=== PATIENT | male | born 1945 | race African-American/Black ===

== ENCOUNTER 2017-02-14 17:54 | Outpatient (CLI) | payer MEDICARE, OTHER ==
--- NOTE | 2017-02-14 19:29 | RAD ---
PA AND LATERAL CHEST: Date: 02-14-17 History: Smoking history. Comparison: 08-09-16 FINDINGS: Cardiac silhouette and pulmonary vasculature are within normal limits. Again noted is hyperexpansion of the lungs with emphysematous changes seen. There are linear areas of scarring seen in each lung apex with prominent bullous emphysematous changes in the upper lobes, greater on the right. There alexander s been interval development of a pulmonary nodule overlying the left midlung zone measuring 1.4 cm. No other interval change. IMPRESSION: 1. Interval development of pulmonary nodule at left midlung zone. CT thorax is recommended for furth er evaluation. 2. Emphysematous changes and chronic lung changes. Code T POS: [facility]
== END 2017-02-14 17:55 | disposition home or self-care (01) ==
LOC: NAV RAD 17:54
PROVIDERS: ATTEND Nurse Practitioner Family
DX: Z87.891 Personal history of nicotine dependence (principal); R91.1 Solitary pulmonary nodule
CPT/HCPCS: 71020

== ENCOUNTER 2018-06-26 17:01 | Inpatient (IN) | payer MEDICARE, MEDICAID ==
[2018-06-26 17:23] VITALS: BMI 15.5
[2018-06-26] MEDS ORDERED: Acetaminophen 500 MG TAB PO PRN (17:58)
[2018-06-26] MEDS ORDERED: PROVENTIL INHALER 6.7 G (200 INHALATIONS) INH PRN (19:11)
[2018-06-26] MEDS ORDERED: Albuterol Sulfate 2.5 mg/3 ml Neb NEB PRN (20:39)
[2018-06-26] MEDS: Lisinopril 10 MG TAB PO SCH (21:02)
[2018-06-26] MEDS: Cefdinir 300 MG CAP PO SCH (21:02)
[2018-06-26] MEDS: Famotidine 20 MG TAB PO SCH (21:02)
[2018-06-26] MEDS: Ipratropium Oral Inhaler (200 INHALATIONS) INH SCH (22:11)
--- NOTE | 2018-06-27 00:54 | HP ---
CHIEF COMPLAINT: COPD exacerbation and acute urinary retention, requiring Hernandez catheter placement as well as deconditioning for therapy. BRIEF HISTORY: This is a very pleasant 72-year-old male who presented to [facility] on June 19 with shortness of breath. He was diagnosed with COPD exacerbation. He apparently has also had weight loss of 15 pounds in the last 3 months. He did undergo a chest CT scan which showed severe emphysema with mild atherosclerosis. He was seen by Pulmonology and was treated aggressively with breathing treatments and steroids. He has been switched over to oral steroids and oral antibiotics and was felt to be a candidate for inpatient rehabilitation and transferred here. He also had to have a Hernandez catheter placed due to acute urinary retention and was started on both Flomax and Proscar. The patient is currently resting in bed and denies any concerns. He denies any chest pain or shortness of breath. He denies any fever or chills. He denies any PND or orthopnea. No family at bedside. PAST MEDICAL HISTORY: 1. Chronic obstructive pulmonary disease. 2. Hypertension. 3. Coronary artery disease. 4. Dyslipidemia. PAST SURGICAL HISTORY: 1. Coronary artery stent placement in 2014. 2. Hip replacement. MEDICATIONS: He has been transferred here on the following medications; 1. Ventolin inhaler 2 puffs q.4 p.r.n. 2. Symbicort 1 puff b.i.d., he is to gargle after use. I would suspect it should be 2 puffs b.i.d. 3. Plavix 75 mg daily. 4. DuoNeb via nebulizer q.6 p.r.n. 5. Lisinopril 10 mg b.i.d. 6. Carvedilol 6.25 mg b.i.d. 7. Omnicef 300 mg b.i.d. for 5 more days. 8. Pepcid 20 mg b.i.d. 9. Proscar 5 mg daily. 10. Atrovent inhaler 2 puffs 4 to 6 hours p.r.n. 11. Prednisone 20 mg p.o. daily for 5 more days. 12. Flomax 0.4 mg daily. ALLERGIES: NO KNOWN DRUG ALLERGIES. FAMILY HISTORY: Noncontributory to current admission. PSYCHOSOCIAL HISTORY: He drinks at least 5 drinks a day and smokes about a pack of cigarettes a day and has more than a 50 pack-year history of smoking. Denies any recreational drug use. REVIEW OF SYSTEMS: CARDIOVASCULAR SYSTEM: Denies any chest pain, shortness of breath, palpitations, PND, orthopnea, or pedal edema. RESPIRATORY SYSTEM: Chronic cough, occasional expectoration. Denies any hemoptysis or pleuritic-type chest pain. GASTROINTESTINAL SYSTEM: Denies any nausea, vomiting, diarrhea, constipation, hematemesis, melena, or hematochezia. GENITOURINARY SYSTEM: Acute urinary retention requiring Hernandez catheter placement. MUSCULOSKELETAL SYSTEM: Occasional joint pain. CENTRAL NERVOUS SYSTEM: Denies any focal numbness, weakness, or fainting spells. SKIN: Denies any rash. HEENT: Denies any change in vision, hearing, or swallowing. PHYSICAL EXAMINATION: GENERAL: A pleasant 72-year-old male, cachectic, in no apparent distress. He responds appropriate to questions. He just finished his dinner. No family at bedside. VITAL SIGNS: He is afebrile. Heart rate is 90, respirations 20, oxygen saturation 98% on room air, blood pressure 142/97. HEENT: Normocephalic, atraumatic. Pupils equal and reactive to light and accommodation. NECK: No JVD, thyromegaly carotid bruits. CARDIOVASCULAR SYSTEM: S1 and S2 plus rate and rhythm regular. RESPIRATORY SYSTEM: Normal vesicular breath sounds with decreased air entry. Occasional wheezing. ABDOMEN: Soft, scaphoid, nontender. Bowel sounds heard in all quadrants. EXTREMITIES: Without cyanosis or clubbing. Muscle atrophy is present. No edema. CENTRAL NERVOUS SYSTEM: Alert, awake, and oriented x3. Cranial nerves 2 through 12 intact. Motor system examination shows generalized weakness. LABORATORY DATA: Laboratory values from today are pending. From yesterday, his white count was 6.2, H and H are 11 and 34 with macrocytosis probably from his alcohol use. Chemistry shows a sodium of 139, potassium 3.7, BUN and creatinine are 23 and 0.82. IMPRESSION: 1. Exacerbation of chronic obstructive pulmonary disease, much improved. 2. Hypertension. 3. Dyslipidemia. 4. Coronary artery disease. 5. Significant weight loss in the last 3 months. 6. Deconditioning. 7. Acute urinary retention, likely secondary to benign prostatic hyperplasia. PLAN: 1. Continue heart healthy diet. 2. Oxygen if needed and monitor oxygen saturation. 3. Monitor respiratory status and breathing treatments as ordered. 4. Symbicort regularly and gargle after use. 5. Deep venous thrombosis prophylaxis with PlexiPulses. 6. Stress ulcer prophylaxis. He is already on Pepcid. 7. Monitor cardiac status. 8. PT, OT eval and treat. 9. Recheck laboratory values in the morning. 10. Discussed with the patient and nursing in detail and all questions answered. 11. Estimated length of stay is 7 to 10 days. Job ID: [id number]
[2018-06-27] MEDS: Mometasone/Formoterol 60 PUFF AER INH SCH ×2 (05:07→18:11)
[2018-06-27 05:39] LABS: Band 3 % (5-11); Eosinophils 1 % (0-10); Hemoglobin 10.5 g/dL (14.0-18.0); Lymphocytes 17 % (21-51); MDiff Complete? YES; Mean Corpuscular HGB CONC 32.9 g/dL (32.0-36.0); Mean Corpuscular Hemoglobin 34.2 pg (27.0-31.0); Mean Platelet Volume 9.9 fL (7.4-10.4); Monocytes 14 % (0-10); Neutrophil 65 % (42-75); Platelet Count 173 thou/uL (130-400); Platelet Morphology Comment Appears Adequate; Red Blood Cell (RBC) Count 3.07 mill/uL (4.70-6.10); Target Cells MODERATE= 6-15 cells (100X) (0-1/hpf)
[2018-06-27 05:47] LABS: Anion Gap 11 mmol/L (10-20); BUN (Urea Nitrogen) 29 mg/dL (8.4-25.7); Calc. Creatinine Clearance 63 mL/min (70-130); Calcium 8.8 mg/dL (7.8-10.44); Carbon Dioxide 30 mmol/L (23-31); Chloride 104 mmol/L (98-107); Estimated GFR-MDRD Greater than 90; Glucose 96 mg/dL (83-110); Potassium 4.2 mmol/L (3.5-5.1); Sodium 141 mmol/L (136-145)
[2018-06-27] MEDS: Lisinopril 10 MG TAB PO SCH ×2 (08:31→20:10)
[2018-06-27] MEDS: Cefdinir 300 MG CAP PO SCH ×2 (08:31→20:10)
[2018-06-27] MEDS: Clopidogrel Bisulfate 75 MG TAB PO SCH (08:31)
[2018-06-27] MEDS: Carvedilol 6.25 MG TAB PO SCH ×2 (08:31→17:24)
[2018-06-27] MEDS: Finasteride 5 MG TAB PO SCH (08:31)
[2018-06-27] MEDS: predniSONE 20 MG TAB PO SCH (08:31)
[2018-06-27] MEDS: Famotidine 20 MG TAB PO SCH ×2 (08:32→20:10)
[2018-06-27] MEDS: Tamsulosin HCl 0.4 MG CAP PO SCH (08:32)
[2018-06-27] MEDS: Ipratropium Oral Inhaler (200 INHALATIONS) INH SCH (10:02)
--- NOTE | 2018-06-27 13:50 | PRG ---
DATE OF SERVICE: 06/27/2018 SUBJECTIVE: Mr. Torres is doing well. He denies any concerns or questions. He did participate with therapy. He states that he is still weak. He denies any chest pain or shortness of breath. Denies any PND or orthopnea. No family at bedside. Discussed with nursing. OBJECTIVE: VITAL SIGNS: He is afebrile. Heart rate is 79, respirations 20, oxygen saturation 97% on room air. Blood pressure was 172/86. This was done in the morning before he got his carvedilol. We will have them monitor it at least twice a day. CARDIOVASCULAR: S1 and S2 plus. RESPIRATORY: Normal vesicular breath sounds with occasional wheezing. ABDOMEN: Soft, nontender. Bowel sounds heard in all quadrants. EXTREMITIES: Without cyanosis, clubbing. Peripheral pulses are palpable. CENTRAL NERVOUS SYSTEM: A and O x3. Cranial nerves 2 through 12 intact. Generalized weakness. LABORATORY VALUES: Labs done today shows white count of 7, H and H are 10.5 and 31.9. Sodium 141, potassium 4.2, BUN and creatinine are 29 and 0.87. IMPRESSION: 1. Chronic obstructive pulmonary disease exacerbation, resolving. 2. Acute urinary retention, currently on Flomax and Proscar. 3. Significant deconditioning. 4. Tobacco and alcohol abuse. 5. Coronary artery disease. 6. Dyslipidemia. 7. Hypertension. PLAN: 1. He is supposed to be on lisinopril 10 mg b.i.d., but I think he is just on it once a day, we will change the prescription. 2. Increase Symbicort to two puffs b.i.d. 3. Low-sodium diet. 4. DVT prophylaxis with PlexiPulses. 5. Decubitus precautions. 6. Stress ulcer prophylaxis. He is on Pepcid. 7. Finish prednisone after five days is done. 8. Monitor respiratory status and breathing treatments as needed. 9. Routine laboratory values. 10. Physical therapy. 11. Discussed with the patient and nursing in detail. All questions answered. Job ID: [id number]
[2018-06-27] MEDS: Ipratropium Bromide 2.5 ml Neb NEB SCH ×2 (15:23→18:11)
[2018-06-28] MEDS: Ipratropium Bromide 2.5 ml Neb NEB SCH ×4 (05:33→18:30)
[2018-06-28] MEDS: Mometasone/Formoterol 60 PUFF AER INH SCH ×2 (05:33→18:29)
[2018-06-28] MEDS: Carvedilol 6.25 MG TAB PO SCH ×2 (08:31→16:48)
[2018-06-28] MEDS: Clopidogrel Bisulfate 75 MG TAB PO SCH (08:32)
[2018-06-28] MEDS: predniSONE 20 MG TAB PO SCH (08:32)
[2018-06-28] MEDS: Famotidine 20 MG TAB PO SCH ×2 (08:32→20:18)
[2018-06-28] MEDS: Cefdinir 300 MG CAP PO SCH ×2 (08:32→20:18)
[2018-06-28] MEDS: Finasteride 5 MG TAB PO SCH (08:32)
[2018-06-28] MEDS: Tamsulosin HCl 0.4 MG CAP PO SCH (08:33)
[2018-06-28] MEDS: Lisinopril 10 MG TAB PO SCH ×2 (08:33→20:18)
[2018-06-28] MEDS: Bisacodyl 10 MG SUPP PR PRN (15:01)
[2018-06-29] MEDS: Mometasone/Formoterol 60 PUFF AER INH SCH ×2 (05:42→18:57)
[2018-06-29] MEDS: Ipratropium Bromide 2.5 ml Neb NEB SCH ×4 (05:43→18:58)
[2018-06-29] MEDS: Carvedilol 6.25 MG TAB PO SCH ×2 (09:08→16:45)
[2018-06-29] MEDS: predniSONE 20 MG TAB PO SCH (09:09)
[2018-06-29] MEDS: Famotidine 20 MG TAB PO SCH ×2 (09:10→20:47)
[2018-06-29] MEDS: Clopidogrel Bisulfate 75 MG TAB PO SCH (09:10)
[2018-06-29] MEDS: Finasteride 5 MG TAB PO SCH (09:10)
[2018-06-29] MEDS: Cefdinir 300 MG CAP PO SCH ×2 (09:10→20:47)
[2018-06-29] MEDS: Polyethylene Glycol 3350 17 GM Packet PO SCH (09:11)
[2018-06-29] MEDS: Lisinopril 10 MG TAB PO SCH ×2 (09:11→20:47)
[2018-06-29] MEDS: Tamsulosin HCl 0.4 MG CAP PO SCH (09:11)
--- NOTE | 2018-06-29 17:47 | PRG ---
DATE OF SERVICE: 06/29/2018 SUBJECTIVE: Mr. Torres is feeling better after he had a good bowel movement. The Dulcolax suppository worked. He denies any chest pain or shortness of breath. He is tolerating his diet and his Hernandez catheter. Nursing denies any concerns. He denies any chest pain or shortness of breath. Denies any fever or chills. Denies any symptoms. OBJECTIVE: VITAL SIGNS: He is afebrile. Heart rate 78, respirations 20, oxygen saturation 100% on room air, and blood pressure was 133/82. CARDIOVASCULAR: S1 and S2 plus. RESPIRATORY: Normal vesicular breath sounds. ABDOMEN: Soft, nontender. Bowel sounds heard in all quadrants. EXTREMITIES: Without cyanosis or clubbing. Peripheral pulses are palpable. CENTRAL NERVOUS SYSTEM: Improving deconditioning. He is alert, awake, and oriented x3. Cranial nerves 2 through 12 intact. IMPRESSION: 1. Chronic obstructive pulmonary disease. 2. Hypertension. 3. Dyslipidemia. 4. Coronary artery disease. 5. Resolved constipation. 6. Improving deconditioning. 7. Urinary retention likely due to BPH. PLAN: 1. Continue heart healthy diet. 2. Monitor blood pressure and adjust medications as needed. 3. Monitor respiratory status and breathing treatments. 4. Monitor for any decompensation of heart disease. 5. Hernandez catheter care. 6. Physical therapy. 7. Routine laboratory values. 8. Anticipate discontinuing his Hernandez catheter trial on Tuesday. Job ID: [id number]
[2018-06-29] MEDS: Bisacodyl 10 MG SUPP PR PRN (20:48)
[2018-06-30] MEDS: Ipratropium Bromide 2.5 ml Neb NEB SCH ×4 (05:52→19:17)
[2018-06-30] MEDS: Mometasone/Formoterol 60 PUFF AER INH SCH ×2 (05:52→19:15)
[2018-06-30] MEDS: Carvedilol 6.25 MG TAB PO SCH ×2 (08:00→17:49)
[2018-06-30] MEDS: predniSONE 20 MG TAB PO SCH (08:01)
[2018-06-30] MEDS: Lisinopril 10 MG TAB PO SCH ×2 (09:28→20:10)
[2018-06-30] MEDS: Tamsulosin HCl 0.4 MG CAP PO SCH (09:28)
[2018-06-30] MEDS: Clopidogrel Bisulfate 75 MG TAB PO SCH (09:28)
[2018-06-30] MEDS: Cefdinir 300 MG CAP PO SCH ×2 (09:28→20:10)
[2018-06-30] MEDS: Finasteride 5 MG TAB PO SCH (09:29)
[2018-06-30] MEDS: Famotidine 20 MG TAB PO SCH ×2 (09:30→20:10)
[2018-06-30] MEDS: Polyethylene Glycol 3350 17 GM Packet PO SCH (09:34)
[2018-07-01] MEDS: Mometasone/Formoterol 60 PUFF AER INH SCH ×2 (05:28→18:09)
[2018-07-01] MEDS: Ipratropium Bromide 2.5 ml Neb NEB SCH ×4 (05:29→18:08)
[2018-07-01] MEDS: Polyethylene Glycol 3350 17 GM Packet PO SCH (09:10)
[2018-07-01] MEDS: Tamsulosin HCl 0.4 MG CAP PO SCH (09:11)
[2018-07-01] MEDS: Cefdinir 300 MG CAP PO SCH ×2 (09:11→20:20)
[2018-07-01] MEDS: Famotidine 20 MG TAB PO SCH ×2 (09:11→20:20)
[2018-07-01] MEDS: predniSONE 20 MG TAB PO SCH (09:11)
[2018-07-01] MEDS: Finasteride 5 MG TAB PO SCH (09:11)
[2018-07-01] MEDS: Clopidogrel Bisulfate 75 MG TAB PO SCH (09:11)
[2018-07-01] MEDS: Lisinopril 10 MG TAB PO SCH ×2 (09:11→20:20)
[2018-07-01] MEDS: Carvedilol 6.25 MG TAB PO SCH ×2 (09:11→17:08)
--- NOTE | 2018-07-01 17:02 | PRG ---
DATE OF SERVICE: 07/01/2018 SUBJECTIVE: Mr. Torres is doing well. Denies any complaints. Resting comfortably. No family at bedside. Discussed with nursing. OBJECTIVE: VITAL SIGNS: He is afebrile. Heart rate 80, respirations 20, oxygen saturation 100% on room air. Blood pressure is 152/72, this morning then it was 168/95. Reviewed his recent blood pressures and they have been running above 140/90 for the most part. CARDIOVASCULAR: S1, S2 plus. RESPIRATORY: Normal vesicular breath sounds. ABDOMEN: Soft, nontender. Bowel sounds heard in all quadrants. EXTREMITIES: Without cyanosis or clubbing. Peripheral pulses are palpable. CENTRAL NERVOUS SYSTEM: Cranial nerves 2 through 12 intact. A/O x3. Motor system examination is grossly nonfocal. IMPRESSION: 1. Hypertension, not well controlled. 2. Chronic obstructive pulmonary disease. 3. Dyslipidemia. 4. Coronary artery disease without angina. 5. Urinary retention, likely due to benign prostatic hyperplasia and improving deconditioning. PLAN: 1. Continue heart healthy diet. 2. Monitor blood pressure and increase carvedilol to 12.5 mg b.i.d. 3. Monitor respiratory status and breathing treatments as needed. 4. Monitor for any decompensation of heart disease. 5. Hernandez catheter care. Anticipate discontinuing his Hernandez catheter on Tuesday. 6. Continue physical therapy. 7. Routine laboratory values. 8. Discussed with the patient in detail and all questions answered and continue DVT and stress ulcer prophylaxis. Job ID: [id number]
[2018-07-02] MEDS: Mometasone/Formoterol 60 PUFF AER INH SCH ×2 (05:36→18:30)
[2018-07-02] MEDS: Ipratropium Bromide 2.5 ml Neb NEB SCH ×4 (05:36→18:31)
[2018-07-02] MEDS: Polyethylene Glycol 3350 17 GM Packet PO SCH (08:56)
[2018-07-02] MEDS: Famotidine 20 MG TAB PO SCH ×2 (08:57→20:03)
[2018-07-02] MEDS: Tamsulosin HCl 0.4 MG CAP PO SCH (08:57)
[2018-07-02] MEDS: Lisinopril 10 MG TAB PO SCH ×2 (08:57→20:03)
[2018-07-02] MEDS: Carvedilol 6.25 MG TAB PO SCH ×2 (08:57→17:30)
[2018-07-02] MEDS: Clopidogrel Bisulfate 75 MG TAB PO SCH (08:57)
[2018-07-02] MEDS: Finasteride 5 MG TAB PO SCH (08:57)
--- NOTE | 2018-07-02 15:41 | PRG ---
DATE OF SERVICE: 07/02/2018 SUBJECTIVE: Mr. Torres is resting comfortably. He is sleeping, but arousable. He denies any concerns or questions. No family at bedside. Discussed with nursing. OBJECTIVE: VITAL SIGNS: He is afebrile. Heart rate 75, respirations 20, oxygen saturation 98% on room air, and blood pressure 169/90. His carvedilol was increased to 12.5 b.i.d. yesterday. If it continues to remain high, tomorrow we will increase his lisinopril to 20 b.i.d. He denies any chest pain or shortness of breath. CARDIOVASCULAR SYSTEM: S1 and S2 plus. RESPIRATORY SYSTEM: Normal vesicular breath sounds. ABDOMEN: Soft, nontender. Bowel sounds in all quadrants. EXTREMITIES: Without cyanosis or clubbing. Peripheral pulses are palpable. CENTRAL NERVOUS SYSTEM: A and O x3. Cranial nerves 2 through 12 intact. IMPRESSION: 1. Hypertension, still not well controlled despite increasing his carvedilol. 2. Chronic obstructive pulmonary disease. 3. Dyslipidemia. 4. Coronary artery disease without angina. 5. Urinary retention, likely due to benign prostatic hypertrophy. 6. Deconditioning. PLAN: 1. Continue heart healthy diet and current medications. 2. Monitor blood pressure and if no changes, we will increase his lisinopril to 20 b.i.d. tomorrow. 3. Monitor respiratory status and breathing treatments as needed. 4. Monitor for any decompensation of heart disease. 5. Continue Hernandez catheter care. 6. Continue physical therapy. 7. Routine laboratory values. 8. Anticipate trial of discontinuing Hernandez catheter early next week. Job ID: [id number]
[2018-07-02] MEDS: Bisacodyl 10 MG SUPP PR PRN (20:03)
[2018-07-03] MEDS: Ipratropium Bromide 2.5 ml Neb NEB SCH ×4 (05:24→18:49)
[2018-07-03] MEDS: Mometasone/Formoterol 60 PUFF AER INH SCH ×2 (05:24→18:46)
[2018-07-03] MEDS: Carvedilol 6.25 MG TAB PO SCH ×2 (09:01→16:27)
[2018-07-03] MEDS: Famotidine 20 MG TAB PO SCH ×2 (09:02→20:02)
[2018-07-03] MEDS: Tamsulosin HCl 0.4 MG CAP PO SCH (09:02)
[2018-07-03] MEDS: Polyethylene Glycol 3350 17 GM Packet PO SCH (09:02)
[2018-07-03] MEDS: Clopidogrel Bisulfate 75 MG TAB PO SCH (09:02)
[2018-07-03] MEDS: Finasteride 5 MG TAB PO SCH (09:02)
[2018-07-03] MEDS: Lisinopril 10 MG TAB PO SCH ×2 (09:02→20:01)
--- NOTE | 2018-07-03 14:02 | PRG ---
DATE OF SERVICE: 07/03/2018 SUBJECTIVE: Mr. Torres is doing well. Denies any complaints, resting comfortably, tolerating his therapy and his medications. He apparently had a good session of therapy this morning. Discussed with him the plan is to discontinue his Hernandez catheter tomorrow and see how he does. OBJECTIVE: VITAL SIGNS: He is afebrile. Heart rate 69, respirations 20, oxygen saturation 98% on room air, and blood pressure is much improved at 149/85. CARDIOVASCULAR SYSTEM: S1 and S2 plus. RESPIRATORY SYSTEM: Normal vesicular breath sounds. ABDOMEN: Soft and nontender. Bowel sounds heard in all quadrants. EXTREMITIES: Without cyanosis or clubbing. IMPRESSION: 1. Resolved exacerbation of chronic obstructive pulmonary disease. 2. Chronic obstructive pulmonary disease. 3. Hypertension. 4. Coronary artery disease. 5. Dyslipidemia. 6. Benign prostatic hypertrophy causing urinary retention requiring Hernandez catheter placement. 7. Improving deconditioning. PLAN: 1. Trial of removing Hernandez catheter tomorrow. We will monitor urinary output and bladder scan p.r.n. 2. Continue breathing treatments. 3. Heart healthy diet. 4. DVT and stress ulcer prophylaxis. 5. Decubitus precautions. 6. Routine laboratory values. 7. No family at bedside. 8. Discussed with the patient in detail and all questions answered. Job ID: [id number]
[2018-07-04] MEDS: Ipratropium Bromide 2.5 ml Neb NEB SCH ×4 (05:16→18:29)
[2018-07-04] MEDS: Mometasone/Formoterol 60 PUFF AER INH SCH ×2 (05:16→18:22)
[2018-07-04] MEDS: Finasteride 5 MG TAB PO SCH (08:37)
[2018-07-04] MEDS: Clopidogrel Bisulfate 75 MG TAB PO SCH (08:37)
[2018-07-04] MEDS: Carvedilol 6.25 MG TAB PO SCH ×2 (08:37→16:19)
[2018-07-04] MEDS: Famotidine 20 MG TAB PO SCH ×2 (08:37→20:27)
[2018-07-04] MEDS: Lisinopril 10 MG TAB PO SCH ×2 (08:37→20:27)
[2018-07-04] MEDS: Polyethylene Glycol 3350 17 GM Packet PO SCH (08:37)
[2018-07-04] MEDS: Tamsulosin HCl 0.4 MG CAP PO SCH (08:38)
[2018-07-05] MEDS: Mometasone/Formoterol 60 PUFF AER INH SCH ×2 (05:13→18:26)
[2018-07-05] MEDS: Ipratropium Bromide 2.5 ml Neb NEB SCH ×4 (05:14→18:27)
[2018-07-05] MEDS: Polyethylene Glycol 3350 17 GM Packet PO SCH (09:21)
[2018-07-05] MEDS: Lisinopril 10 MG TAB PO SCH ×2 (09:22→20:59)
[2018-07-05] MEDS: Famotidine 20 MG TAB PO SCH ×2 (09:22→20:58)
[2018-07-05] MEDS: Carvedilol 6.25 MG TAB PO SCH ×2 (09:22→17:13)
[2018-07-05] MEDS: Clopidogrel Bisulfate 75 MG TAB PO SCH (09:22)
[2018-07-05] MEDS: Tamsulosin HCl 0.4 MG CAP PO SCH (09:22)
[2018-07-05] MEDS: Finasteride 5 MG TAB PO SCH (09:24)
--- NOTE | 2018-07-05 12:24 | PRG ---
DATE OF SERVICE: 07/05/2018 SUBJECTIVE: Mr. Torres is doing well. Unfortunately, Hernandez catheter has to be replaced since he did not do well with the Hernandez catheter removal. He apparently had a bladder volume of 730 mL and still was unable to void. He is on tamsulosin and finasteride. Hernandez catheter has been replaced. He denies any concerns. He apparently did have some orthostasis this morning with showering. Blood pressure went from 135 systolic to 95. He does have significant vision deficit and so I advised nursing to make sure they help him with his hydration. He apparently is hardly drinking any water. He is not on any diuretic. OBJECTIVE: VITAL SIGNS: He is afebrile. Heart rate is 108, blood pressure 95/57 this is right after the shower, before that it was 139/98 with a heart rate of 79. CARDIOVASCULAR: S1, S2 plus. RESPIRATORY: Normal vesicular breath sounds. ABDOMEN: Soft, nontender. Bowel sounds heard in all quadrants. EXTREMITIES: Without cyanosis or clubbing. Hernandez catheter in place. CENTRAL NERVOUS SYSTEM: Awake and responsive. Generalized weakness. IMPRESSION: 1. Chronic obstructive pulmonary disease. 2. Urinary retention, likely due to Benign prostatic hyperplasia. 3. Hypertension. 4. Coronary artery disease. 5. Dyslipidemia. 6. Improving deconditioning. 7. Orthostasis. PLAN: 1. Encourage p.o. fluid intake. 2. Monitor orthostatics. 3. Continue physical therapy. 4. Continue heart healthy diet. 5. Monitor respiratory status and breathing treatments as needed. 6. Monitor cardiovascular status. 7. DVT and stress ulcer prophylaxis. 8. Hernandez catheter care. 9. No family at bedside. 10. Discussed with therapy and nursing. Job ID: [id number]
[2018-07-05 13:25] LABS: #Basophils 0.1 thou/uL (0.0-0.2); #Eosinphils 0.1 thou/uL (0.0-0.7); #Lymphocytes 1.4 thou/uL (1.20-3.40); #Monocytes 1.4 thou/uL (0.11-0.59); #Neutrophils 10.3 thou/uL (1.40-6.50); %Basophils 0.6 % (0.0-1.0); %Eosinophils 0.5 % (0.0-10.0); %Lymphocytes 10.2 % (21.0-51.0); %Monocytes 10.5 % (0.0-10.0); %Neutrophils 78.1 % (42.0-75.0); Hemoglobin 11.2 g/dL (14.0-18.0); Mean Corpuscular HGB CONC 31.9 g/dL (32.0-36.0); Mean Corpuscular Hemoglobin 33.7 pg (27.0-31.0); Mean Platelet Volume 7.4 fL (7.4-10.4); Platelet Count 221 thou/uL (130-400); Red Blood Cell (RBC) Count 3.34 mill/uL (4.70-6.10); White Blood Cell (WBC) Count 13.2 thou/uL (4.8-10.8)
[2018-07-05 13:35] LABS: ALT (SGPT) 14 U/L (8-55); AST (SGOT) 14 U/L (5-34); Albumin 3.5 g/dL (3.4-4.8); Alkaline Phosphatase 77 U/L (40-150); Anion Gap 13 mmol/L (10-20); BUN (Urea Nitrogen) 30 mg/dL (8.4-25.7); Bilirubin, Total 0.4 mg/dL (0.2-1.2); Calc. Creatinine Clearance 39 mL/min (70-130); Calcium 9.4 mg/dL (7.8-10.44); Carbon Dioxide 29 mmol/L (23-31); Chloride 104 mmol/L (98-107); Estimated GFR-MDRD 61; Globulin 2.8 g/dL (2.4-3.5); Glucose 98 mg/dL (83-110); Potassium 5.3 mmol/L (3.5-5.1); Protein, Total 6.3 g/dL (5.8-8.1); Sodium 141 mmol/L (136-145)
[2018-07-05 15:40] LABS: Bilirubin Negative (Negative); Blood, Urine Large (Negative); Clarity Cloudy (Clear); Glucose, Urine (Dipstick) Negative (Negative); Leukocyte Large (Negative); Nitrite Positive (Negative); Protein, Urine (Dipstick) 100 mg/dL (Neg-Trace); Specific Gravity, Urine 1.015 (1.005-1.030)
[2018-07-05 15:48] LABS: Bacteria/HPF 4+ HPF (None Seen); RBC/HPF GREATER THAN 50-TNTC HPF (0-3); Squamous Epithelial 0-3 HPF (0-3)
--- NOTE | 2018-07-05 16:27 | RAD ---
SINGLE VIEW CHEST: Date: 07/05/18 COMPARISON: 06/19/18. HISTORY: Weakness. FINDINGS: Single view of the chest shows a normal sized cardiomediastinal silhouette. A large bulla is seen pro jecting over the right upper lobe. Hyperexpansion of the lungs may be secondary to COPD. There is no evidence of consolidation, mass, or pleural effusion. IMPRESSION: No evidence of acute cardiopulmonary disease. POS: [facility]
[2018-07-05] MEDS: Ciprofloxacin 500 MG TAB PO SCH (20:58)
[2018-07-06] MEDS: Ipratropium Bromide 2.5 ml Neb NEB SCH ×4 (05:45→18:46)
[2018-07-06] MEDS: Mometasone/Formoterol 60 PUFF AER INH SCH ×2 (05:45→18:46)
[2018-07-06] MEDS: Ciprofloxacin 500 MG TAB PO SCH ×2 (05:45→20:28)
[2018-07-06 05:59] LABS: Anion Gap 13 mmol/L (10-20); BUN (Urea Nitrogen) 27 mg/dL (8.4-25.7); Calc. Creatinine Clearance 55 mL/min (70-130); Calcium 9.3 mg/dL (7.8-10.44); Carbon Dioxide 27 mmol/L (23-31); Chloride 104 mmol/L (98-107); Estimated GFR-MDRD 89; Glucose 92 mg/dL (83-110); Potassium 4.7 mmol/L (3.5-5.1); Sodium 139 mmol/L (136-145)
[2018-07-06 06:12] LABS: #Basophils 0.1 thou/uL (0.0-0.2); #Eosinphils 0.1 thou/uL (0.0-0.7); #Lymphocytes 1.5 thou/uL (1.20-3.40); #Monocytes 1.8 thou/uL (0.11-0.59); #Neutrophils 13.7 thou/uL (1.40-6.50); %Basophils 0.8 % (0.0-1.0); %Eosinophils 0.6 % (0.0-10.0); %Lymphocytes 8.6 % (21.0-51.0); %Monocytes 10.6 % (0.0-10.0); %Neutrophils 79.5 % (42.0-75.0); Hemoglobin 10.7 g/dL (14.0-18.0); Mean Corpuscular HGB CONC 32.2 g/dL (32.0-36.0); Mean Corpuscular Hemoglobin 33.6 pg (27.0-31.0); Platelet Count 204 thou/uL (130-400); RBC Distribution Width 13.6 % (11.5-14.5); Red Blood Cell (RBC) Count 3.19 mill/uL (4.70-6.10); White Blood Cell (WBC) Count 17.2 thou/uL (4.8-10.8)
[2018-07-06] MEDS: Carvedilol 6.25 MG TAB PO SCH ×2 (08:25→17:35)
[2018-07-06] MEDS: Famotidine 20 MG TAB PO SCH ×2 (09:25→20:28)
[2018-07-06] MEDS: Tamsulosin HCl 0.4 MG CAP PO SCH (09:25)
[2018-07-06] MEDS: Clopidogrel Bisulfate 75 MG TAB PO SCH (09:25)
[2018-07-06] MEDS: Finasteride 5 MG TAB PO SCH (09:25)
[2018-07-06] MEDS: Polyethylene Glycol 3350 17 GM Packet PO SCH (09:26)
--- NOTE | 2018-07-06 10:12 | PRG ---
DATE OF SERVICE: 07/06/2018 SUBJECTIVE: Mr. Torres is feeling slightly better today. He does still feel weak. He denies any chest pain or shortness of breath. He denies any myalgia. He denies any GI or symptoms. His white count has increased to 17,000. He remains afebrile. Vital signs are stable. Flu swab is pending. Urinalysis has confirmed UTI and he was started on ciprofloxacin last night. OBJECTIVE: VITAL SIGNS: He is afebrile, but he had a T-max of 100.5 yesterday, midnight. Pulse 95, respirations 20, oxygen saturation 96% on room air, blood pressure 111/67. CARDIOVASCULAR SYSTEM: S1, S2 plus. RESPIRATORY SYSTEM: Normal vesicular breath sounds. ABDOMEN: Soft, nontender. Bowel sounds heard in all quadrants. EXTREMITIES: Without cyanosis, clubbing. Hernandez catheter in place. CENTRAL NERVOUS SYSTEM: Alert, awake, and oriented x3. Grossly nonfocal. LABORATORY DATA: His flu swab is positive for influenza B. PLAN: 1. Tamiflu 75 mg p.o. b.i.d. x5 days. 2. Respiratory isolation. 3. Continue ciprofloxacin for empiric UTI. 4. Encourage p.o. fluid intake. 5. DVT and stress ulcer prophylaxis. 6. Decubitus precaution. 7. IV fluids D5 normal saline at 75 mL, because he is feeling puny. Continue other medications. Dr. Stephen will be more following him from now through this weekend. Job ID: [id number]
[2018-07-06] MEDS: Lisinopril 10 MG TAB PO SCH ×2 (11:27→20:28)
[2018-07-06] MEDS: Dextrose 5 % And 0.9 % NaCl 1,000 ML IV SCH ×2 (11:28→22:24)
[2018-07-06] MEDS: Oseltamivir 75 MG CAP PO SCH (20:28)
[2018-07-07] MEDS: Ciprofloxacin 500 MG TAB PO SCH ×2 (04:55→20:22)
[2018-07-07] MEDS: Mometasone/Formoterol 60 PUFF AER INH SCH ×2 (04:55→18:10)
[2018-07-07 05:26] LABS: #Basophils 0.1 thou/uL (0.0-0.2); #Eosinphils 0.1 thou/uL (0.0-0.7); #Lymphocytes 1.5 thou/uL (1.20-3.40); #Monocytes 1.7 thou/uL (0.11-0.59); #Neutrophils 11.5 thou/uL (1.40-6.50); %Eosinophils 0.8 % (0.0-10.0); %Lymphocytes 10.2 % (21.0-51.0); %Monocytes 11.3 % (0.0-10.0); %Neutrophils 76.7 % (42.0-75.0); Hemoglobin 9.7 g/dL (14.0-18.0); MDiff Complete? YES; Macrocytosis MODERATE=16-30 cells (100X) (0-5/hpf); Mean Corpuscular HGB CONC 32.3 g/dL (32.0-36.0); Mean Corpuscular Hemoglobin 33.8 pg (27.0-31.0); Mean Platelet Volume 8.3 fL (7.4-10.4); Platelet Count 186 thou/uL (130-400); Platelet Morphology Comment Appears Adequate; RBC Distribution Width 13.6 % (11.5-14.5); Red Blood Cell (RBC) Count 2.88 mill/uL (4.70-6.10)
[2018-07-07] MEDS: Ipratropium Bromide 2.5 ml Neb NEB SCH ×4 (05:26→18:10)
[2018-07-07 05:39] LABS: Anion Gap 10 mmol/L (10-20); BUN (Urea Nitrogen) 20 mg/dL (8.4-25.7); Calc. Creatinine Clearance 61 mL/min (70-130); Calcium 8.9 mg/dL (7.8-10.44); Carbon Dioxide 25 mmol/L (23-31); Chloride 108 mmol/L (98-107); Estimated GFR-MDRD Greater than 90; Glucose 111 mg/dL (83-110); Potassium 4.4 mmol/L (3.5-5.1); Sodium 139 mmol/L (136-145)
[2018-07-07] MEDS: Carvedilol 6.25 MG TAB PO SCH ×2 (09:49→17:50)
[2018-07-07] MEDS: Tamsulosin HCl 0.4 MG CAP PO SCH (09:51)
[2018-07-07] MEDS: Famotidine 20 MG TAB PO SCH ×2 (09:52→20:22)
[2018-07-07] MEDS: Oseltamivir 75 MG CAP PO SCH ×2 (09:53→20:23)
[2018-07-07] MEDS: Lisinopril 10 MG TAB PO SCH ×2 (09:53→20:23)
[2018-07-07] MEDS: Clopidogrel Bisulfate 75 MG TAB PO SCH (09:54)
[2018-07-07] MEDS: Finasteride 5 MG TAB PO SCH (09:55)
[2018-07-07] MEDS: Polyethylene Glycol 3350 17 GM Packet PO SCH (10:43)
[2018-07-07] MEDS: Dextrose 5 % And 0.9 % NaCl 1,000 ML IV SCH ×2 (11:56)
[2018-07-08] MEDS: Dextrose 5 % And 0.9 % NaCl 1,000 ML IV SCH ×2 (00:55→14:25)
[2018-07-08] MEDS: Ciprofloxacin 500 MG TAB PO SCH ×2 (05:26→20:39)
[2018-07-08] MEDS: Ipratropium Bromide 2.5 ml Neb NEB SCH ×4 (05:26→18:46)
[2018-07-08] MEDS: Mometasone/Formoterol 60 PUFF AER INH SCH ×2 (05:26→18:45)
[2018-07-08] MEDS: Carvedilol 6.25 MG TAB PO SCH ×2 (09:00→16:46)
[2018-07-08] MEDS: Lisinopril 10 MG TAB PO SCH ×2 (09:01→20:39)
[2018-07-08] MEDS: Famotidine 20 MG TAB PO SCH ×2 (09:01→20:39)
[2018-07-08] MEDS: Clopidogrel Bisulfate 75 MG TAB PO SCH (09:01)
[2018-07-08] MEDS: Finasteride 5 MG TAB PO SCH (09:01)
[2018-07-08] MEDS: Polyethylene Glycol 3350 17 GM Packet PO SCH (09:02)
[2018-07-08] MEDS: Oseltamivir 75 MG CAP PO SCH ×2 (09:02→20:39)
[2018-07-08] MEDS: Tamsulosin HCl 0.4 MG CAP PO SCH (09:02)
[2018-07-08] MEDS: Artificial Tear Sol 15 ML BOT R EYE PRN ×2 (16:50→20:52)
--- NOTE | 2018-07-08 19:16 | PRG ---
DATE OF SERVICE: 07/08/2018 SUBJECTIVE: The patient feels well with no cough, fever, chills, myalgias, nausea, or vomiting. Feels he is getting much better. OBJECTIVE: VITAL SIGNS: Show temperature is 98, pulse 77, respirations 20, O2 sats 98% on room air, and blood pressure is intermittently elevated up to 193 to 158 and pulse is stable at 74 to 79. LUNGS: Clear. CARDIAC: Showed regular rhythm. ABDOMEN: Soft, nontender. ASSESSMENT: 1. Resolving Pseudomonas urinary tract infection. 2. Resolving influenza B. 3. Increased blood pressure. PLAN: 1. Increase carvedilol to 25 twice daily. 2. Continue Tamiflu 75 twice daily. 3. Continue Cipro 500 twice daily. 4. Discontinue IV fluids as the patient is eating well. 5. Monitor vital signs closely. Job ID: [id number]
--- NOTE | 2018-07-08 19:26 | PRG ---
DATE OF SERVICE: 07/07/2018 SUBJECTIVE: The patient feels well with only minimal cough. No sputum production. No nausea, vomiting, diarrhea. OBJECTIVE: VITAL SIGNS: Show temperature is 98, pulse 74, respirations 18, O2 sats 94% on room air, and blood pressure 127/68. LUNGS: Clear. CARDIAC: Showed regular rhythm. ABDOMEN: Soft and nontender. LABORATORY DATA: Show white count however still elevated at 15,000, hematocrit 30, hemoglobin 9.7. Sodium is 139, potassium 4.4, chloride 108, bicarb 25, BUN 20, creatinine 0.89, glucose 111. Urinalysis two days ago did show greater than 50 red cells and white cells. Urine culture grew Pseudomonas, which is sensitive to Cipro the patient is on. ASSESSMENT: Resolving Pseudomonas urinary tract infection, resolving influenza B. PLAN: 1. Continue Tamiflu. 2. Continue Cipro. 3. Continue normal saline. Job ID: [id number]
[2018-07-09] MEDS: Ciprofloxacin 500 MG TAB PO SCH ×2 (05:37→20:21)
[2018-07-09] MEDS: Mometasone/Formoterol 60 PUFF AER INH SCH ×2 (05:37→18:18)
[2018-07-09] MEDS: Ipratropium Bromide 2.5 ml Neb NEB SCH ×4 (05:56→18:18)
--- NOTE | 2018-07-09 08:57 | PRG ---
DATE OF SERVICE: 07/09/[address] Rony Pisano. SUBJECTIVE: The patient feels well, lying in the bed, sleeping. Denies any shortness of breath, chest pain, cough, fever, or chills. OBJECTIVE: VITAL SIGNS: Show blood pressure 152/77, respirations 20, and O2 sats 96% on room air. The patient has been afebrile for 72 hours. He is on treatment for urinary tract infection, secondary to Pseudomonas and influenza B. ASSESSMENT: 1. Resolving influenza B. 2. Resolving Pseudomonas urinary tract infection. 3. Resolving deconditioning. PLAN: 1. Repeat CBC in the a.m. 2. Continue Tamiflu to finish full course. 3. Continue Cipro. 4. Continue increased dose of carvedilol to hopefully maintain improved control of blood pressure. Job ID: [id number]
[2018-07-09] MEDS: Finasteride 5 MG TAB PO SCH (09:12)
[2018-07-09] MEDS: Carvedilol 25 MG TAB PO SCH ×2 (09:12→17:04)
[2018-07-09] MEDS: Clopidogrel Bisulfate 75 MG TAB PO SCH (09:12)
[2018-07-09] MEDS: Famotidine 20 MG TAB PO SCH ×2 (09:12→20:21)
[2018-07-09] MEDS: Oseltamivir 75 MG CAP PO SCH ×2 (09:13→20:22)
[2018-07-09] MEDS: Polyethylene Glycol 3350 17 GM Packet PO SCH (09:13)
[2018-07-09] MEDS: Lisinopril 10 MG TAB PO SCH ×2 (09:13→20:21)
[2018-07-09] MEDS: Tamsulosin HCl 0.4 MG CAP PO SCH (09:13)
[2018-07-09] MEDS: Artificial Tear Sol 15 ML BOT R EYE PRN (09:14)
[2018-07-10] MEDS: Ciprofloxacin 500 MG TAB PO SCH ×2 (05:09→20:39)
[2018-07-10] MEDS: Mometasone/Formoterol 60 PUFF AER INH SCH ×2 (05:09→18:38)
[2018-07-10] MEDS: Ipratropium Bromide 2.5 ml Neb NEB SCH ×4 (05:09→18:38)
[2018-07-10 05:19] LABS: Band 4 % (5-11); Eosinophils 3 % (0-10); Hemoglobin 9.4 g/dL (14.0-18.0); Lymphocytes 21 % (21-51); MDiff Complete? YES; Mean Corpuscular HGB CONC 31.8 g/dL (32.0-36.0); Mean Corpuscular Hemoglobin 32.5 pg (27.0-31.0); Mean Platelet Volume 7.8 fL (7.4-10.4); Monocytes 4 % (0-10); Neutrophil 68 % (42-75); Platelet Count 185 thou/uL (130-400); Platelet Morphology Comment Appears Adequate; RBC Distribution Width 13.6 % (11.5-14.5); RBC Morphology Normal; White Blood Cell (WBC) Count 10.1 thou/uL (4.8-10.8)
[2018-07-10] MEDS: Lisinopril 10 MG TAB PO SCH ×2 (08:42→20:39)
[2018-07-10] MEDS: Famotidine 20 MG TAB PO SCH ×2 (08:42→20:39)
[2018-07-10] MEDS: Clopidogrel Bisulfate 75 MG TAB PO SCH (08:42)
[2018-07-10] MEDS: Oseltamivir 75 MG CAP PO SCH ×2 (08:43→20:39)
[2018-07-10] MEDS: Carvedilol 25 MG TAB PO SCH ×2 (08:43→17:37)
[2018-07-10] MEDS: Tamsulosin HCl 0.4 MG CAP PO SCH (08:43)
[2018-07-10] MEDS: Finasteride 5 MG TAB PO SCH (08:43)
[2018-07-10] MEDS: Polyethylene Glycol 3350 17 GM Packet PO SCH (08:43)
--- NOTE | 2018-07-10 14:18 | PRG ---
DATE OF SERVICE: 07/10/2018 SUBJECTIVE: Mr. Torres is doing better, almost recovered from the flu. Denies any chest pain or shortness of breath. Denies any fever or chills. Tolerating his therapy. OBJECTIVE: VITAL SIGNS: He is afebrile, heart rate is 79, respirations are 20, oxygen saturation is 97% on room air, blood pressure is 127/70. CARDIOVASCULAR SYSTEM: S1-S2 plus. RESPIRATORY SYSTEM: Normal vesicular breath sounds. ABDOMEN: Soft and nontender. Bowel sounds heard in all quadrants. EXTREMITIES: Without cyanosis or clubbing. Peripheral pulses are palpable. LABORATORY DATA: White count is down to 10.1, normal; H and H are 9.4 and 29.6. IMPRESSION: 1. Resolving influenza. 2. Chronic obstructive pulmonary disease. 3. Urinary retention, likely due to benign prostatic hyperplasia. 4. Improving deconditioning. 5. Hypertension. 6. Coronary artery disease. 7. Dyslipidemia. PLAN: 1. Finish Tamiflu, total of 5 days, then discontinue isolation. 2. Heart healthy diet. 3. Physical therapy. 4. Hernandez catheter care. 5. DVT and stress ulcer prophylaxis. 6. Decubitus precautions. 7. Continue therapy. 8. Discussed with the patient and nursing in detail, and all questions answered. Job ID: [id number]
[2018-07-11] MEDS: Mometasone/Formoterol 60 PUFF AER INH SCH ×2 (05:21→18:10)
[2018-07-11] MEDS: Ipratropium Bromide 2.5 ml Neb NEB SCH ×4 (05:21→18:10)
[2018-07-11] MEDS: Ciprofloxacin 500 MG TAB PO SCH ×2 (05:21→20:08)
[2018-07-11] MEDS: Finasteride 5 MG TAB PO SCH (09:12)
[2018-07-11] MEDS: Clopidogrel Bisulfate 75 MG TAB PO SCH (09:12)
[2018-07-11] MEDS: Polyethylene Glycol 3350 17 GM Packet PO SCH (09:12)
[2018-07-11] MEDS: Carvedilol 25 MG TAB PO SCH ×2 (09:12→17:10)
[2018-07-11] MEDS: Oseltamivir 75 MG CAP PO SCH (09:12)
[2018-07-11] MEDS: Lisinopril 10 MG TAB PO SCH ×2 (09:12→20:09)
[2018-07-11] MEDS: Tamsulosin HCl 0.4 MG CAP PO SCH (09:12)
[2018-07-11] MEDS: Famotidine 20 MG TAB PO SCH ×2 (09:12→20:08)
[2018-07-12] MEDS: Mometasone/Formoterol 60 PUFF AER INH SCH ×2 (05:16→18:10)
[2018-07-12] MEDS: Ciprofloxacin 500 MG TAB PO SCH ×2 (05:16→20:28)
[2018-07-12] MEDS: Ipratropium Bromide 2.5 ml Neb NEB SCH ×4 (05:17→18:11)
[2018-07-12] MEDS: Carvedilol 25 MG TAB PO SCH ×2 (08:49→16:24)
[2018-07-12] MEDS: Polyethylene Glycol 3350 17 GM Packet PO SCH (08:49)
[2018-07-12] MEDS: Lisinopril 10 MG TAB PO SCH ×2 (08:49→20:28)
[2018-07-12] MEDS: Finasteride 5 MG TAB PO SCH (08:49)
[2018-07-12] MEDS: Famotidine 20 MG TAB PO SCH ×2 (08:49→20:28)
[2018-07-12] MEDS: Clopidogrel Bisulfate 75 MG TAB PO SCH (08:49)
[2018-07-12] MEDS: Tamsulosin HCl 0.4 MG CAP PO SCH (08:50)
--- NOTE | 2018-07-12 14:15 | PRG ---
DATE OF SERVICE: 07/12/2018 SUBJECTIVE: Mr. Torres is doing the same. He is getting stronger. He apparently ambulated 4 times around the nurse's station. He unfortunately is significantly visually impaired and is not aware of where his Hernandez bag is and he apparently is needing cues, so that he does not walk into [facility]. Therapy recommends [facility] placement unless he has somebody taking care of him 29/11. We will put in a consult for Case Management. OBJECTIVE: VITAL SIGNS: He is afebrile. Heart rate 77, respirations 20, oxygen saturation 97% on room air, and blood pressure 157/84. CARDIOVASCULAR: S1, S2 plus. RESPIRATORY: Normal vesicular breath sounds. ABDOMEN: Soft, nontender. Bowel sounds heard in all quadrants. EXTREMITIES: Without cyanosis or clubbing. Peripheral pulses are palpable. CENTRAL NERVOUS SYSTEM: Grossly nonfocal. IMPRESSION: 1. Pseudomonas urinary tract infection, on ciprofloxacin. 2. Benign prostatic hyperplasia with urinary retention, requiring Hernandez catheter, failed removal of Hernandez. 3. Chronic obstructive pulmonary disease. 4. Coronary artery disease. 5. Hypertension. 6. Dyslipidemia. 7. Visual impairment. PLAN: 1. Continue ciprofloxacin for a total of 14 days. 2. Hernandez catheter care. 3. Nutritional support with heart healthy diet. 4. Monitor respiratory status and breathing treatments as needed. 5. DVT and stress ulcer prophylaxis. 6. Decubitus precautions. 7. Physical therapy. 8. Consult Case Management for placement. Job ID: [id number]
[2018-07-13] MEDS: Mometasone/Formoterol 60 PUFF AER INH SCH ×2 (05:26→18:19)
[2018-07-13] MEDS: Ipratropium Bromide 2.5 ml Neb NEB SCH ×4 (05:26→18:21)
[2018-07-13] MEDS: Ciprofloxacin 500 MG TAB PO SCH ×2 (05:26→20:32)
[2018-07-13] MEDS: Carvedilol 25 MG TAB PO SCH ×2 (08:43→17:01)
[2018-07-13] MEDS: Finasteride 5 MG TAB PO SCH (08:44)
[2018-07-13] MEDS: Famotidine 20 MG TAB PO SCH ×2 (08:44→20:32)
[2018-07-13] MEDS: Lisinopril 10 MG TAB PO SCH ×2 (08:44→20:32)
[2018-07-13] MEDS: Clopidogrel Bisulfate 75 MG TAB PO SCH (08:44)
[2018-07-13] MEDS: Polyethylene Glycol 3350 17 GM Packet PO SCH (08:45)
[2018-07-13] MEDS: Tamsulosin HCl 0.4 MG CAP PO SCH (08:45)
--- NOTE | 2018-07-13 14:05 | PRG ---
DATE OF SERVICE: 07/13/2018 SUBJECTIVE: Mr. Torres is doing well. Denies any complaints. Resting comfortably. He states that he really has to go to a nursing facility. He wants to try to remove the catheter one more time and see if he can urinate on his own. He has been on both the tamsulosin and finasteride for another week since the last trial. We will have nursing remove his catheter and monitor his voiding and postvoid residual. OBJECTIVE: VITAL SIGNS: He is afebrile. Heart rate 72, respirations 20, oxygen saturation 97% on room air, and blood pressure 155/88. CARDIOVASCULAR: S1 and S2 plus. RESPIRATORY: Normal vesicular breath sounds. ABDOMEN: Soft, nontender. Bowel sounds heard in all quadrants. EXTREMITIES: Without cyanosis or clubbing. Hernandez catheter in place. CENTRAL NERVOUS SYSTEM: Awake and responsive. Legally blind. Cranial nerves 2 through 12 intact. No family at bedside. IMPRESSION: 1. Chronic obstructive pulmonary disease. 2. Urinary tract infection, currently on ciprofloxacin. 3. Urinary retention. We will try removing his Hernandez again. 4. Coronary artery disease without angina. 5. Hypertension. 6. Dyslipidemia. 7. Deconditioning. 8. Legally blind. PLAN: 1. Continue heart healthy diet. 2. Monitor blood pressure and adjust medications as needed. 3. Monitor respiratory system. 4. Hand-held nebulizer as needed. 5. Finish Cipro after 14 days of total therapy. 6. Trial of removing Hernandez catheter. 7. Continue physical therapy. 8. Discharge planning. Job ID: [id number]
[2018-07-14] MEDS: Mometasone/Formoterol 60 PUFF AER INH SCH ×2 (05:35→17:35)
[2018-07-14] MEDS: Ciprofloxacin 500 MG TAB PO SCH ×2 (05:35→21:00)
[2018-07-14] MEDS: Ipratropium Bromide 2.5 ml Neb NEB SCH ×4 (05:36→17:35)
[2018-07-14] MEDS: Famotidine 20 MG TAB PO SCH ×2 (09:21→21:00)
[2018-07-14] MEDS: Lisinopril 10 MG TAB PO SCH ×2 (09:21→21:00)
[2018-07-14] MEDS: Finasteride 5 MG TAB PO SCH (09:21)
[2018-07-14] MEDS: Carvedilol 25 MG TAB PO SCH ×2 (09:21→17:35)
[2018-07-14] MEDS: Clopidogrel Bisulfate 75 MG TAB PO SCH (09:21)
[2018-07-14] MEDS: Polyethylene Glycol 3350 17 GM Packet PO SCH (09:21)
[2018-07-14] MEDS: Tamsulosin HCl 0.4 MG CAP PO SCH (09:21)
[2018-07-15] MEDS: Ciprofloxacin 500 MG TAB PO SCH ×2 (05:22→20:39)
[2018-07-15] MEDS: Ipratropium Bromide 2.5 ml Neb NEB SCH ×4 (05:23→19:05)
[2018-07-15] MEDS: Mometasone/Formoterol 60 PUFF AER INH SCH ×2 (05:23→17:37)
[2018-07-15] MEDS: Lisinopril 10 MG TAB PO SCH ×2 (08:34→20:38)
[2018-07-15] MEDS: Carvedilol 25 MG TAB PO SCH ×2 (08:34→17:36)
[2018-07-15] MEDS: Finasteride 5 MG TAB PO SCH (08:34)
[2018-07-15] MEDS: Polyethylene Glycol 3350 17 GM Packet PO SCH (08:34)
[2018-07-15] MEDS: Clopidogrel Bisulfate 75 MG TAB PO SCH (08:34)
[2018-07-15] MEDS: Famotidine 20 MG TAB PO SCH ×2 (08:34→20:39)
[2018-07-15] MEDS: Tamsulosin HCl 0.4 MG CAP PO SCH (08:34)
--- NOTE | 2018-07-15 08:41 | PRG ---
DATE OF SERVICE: 07/15/2018 SUBJECTIVE: Mr. Torres is a very pleasant 72-year-old black male, who presented to the ER at [facility] with shortness of breath. He had initial diagnosis of acute exacerbation of COPD. His CT scan reveals severe emphysema. He was seen by Pulmonology and treated aggressively. He was switched to oral steroids, antibiotics, and was extremely weak and transferred to [facility] for physical therapy and occupational therapy. He also has acute urinary retention, and was started on Flomax and Proscar with a Hernandez catheter started. Subjectively, the patient states he is doing well and has no complaints today. He states he worked really hard with his therapy yesterday. He thinks that Dr. Pisano is going to let him go home sometimes next week. He has no complaints today. OBJECTIVE: VITAL SIGNS: Today reveal blood pressure 155/88. Follow up was 137/77. Respirations 18, O2 saturation 98% on room air, T-max 97.3, pulse is 93. GENERAL: This is a well-developed, well-nourished, pleasant black male, in no apparent distress at this time. HEENT: Normocephalic and nontraumatic cranium. Pupils equally round and reactive. Extraocular movements are intact. Nose and throat are slightly dry. NECK: Supple without masses, nodes or bruits. CHEST: Clear to auscultation. No rales, no rhonchi. No wheezes are heard. No cough is noted, although the patient's breath sounds are noted to be very distant. HEART: Regular rate and rhythm without murmurs, gallops, or rubs. It is also distant. ABDOMEN: Soft, nontender without organomegaly. Normal bowel sounds are noted in all 4 quadrants. No rebound or guarding is noted. GENITOURINARY: Hernandez catheter in place. EXTREMITIES: No clubbing, cyanosis, or edema. NEUROVASCULAR: The patient is noted to be legally blind. He is oriented x3. IMPRESSION: 1. Acute exacerbation of chronic obstructive pulmonary disease, much improved. 2. Urinary retention with Hernandez catheter in place. 3. History of prior urinary tract infection. 4. Coronary artery disease without angina. 5. Hypertension. 6. Hyperlipidemia. 7. Extreme weakness with severe deconditioning, improving. 8. Legally blind. PLAN: 1. Continue present pulmonary therapies including handheld nebulizers. 2. Continue Cipro for full 14 days. 3. Continue monitor the patient's blood pressure and adjust medications as needed. 4. Trial for removal of Hernandez next week. 5. Continue physical therapy and occupational therapy. 6. Discharge planning for next week. Job ID: [id number]
[2018-07-16] MEDS: Mometasone/Formoterol 60 PUFF AER INH SCH ×2 (05:41→17:52)
[2018-07-16] MEDS: Ipratropium Bromide 2.5 ml Neb NEB SCH ×4 (05:42→18:10)
[2018-07-16] MEDS: Ciprofloxacin 500 MG TAB PO SCH ×2 (06:38→20:45)
--- NOTE | 2018-07-16 09:18 | PRG ---
DATE OF SERVICE: 07/16/2018 SUBJECTIVE: Mr. Torres is a very pleasant 72-year-old black male, who presented to the ER at [facility] with shortness of breath. He had initial diagnosis of acute exacerbation of COPD. Seen by Pulmonology, treated aggressively, and switched to oral steroids and antibiotics. He was transferred to [facility] because he was extremely weak and required physical therapy and occupational therapy. He also has acute urinary retention, started on Flomax and Proscar, and still has his Hernandez catheter. Today, the patient states he is doing well, and I think he will be going home this next week. OBJECTIVE: VITAL SIGNS: Today reveal blood pressure 142/75, pulse 65, respirations 20, O2 saturation 98% on room air, T-max 98.0. GENERAL: This is a well-developed, well-nourished, pleasant, 6 feet 4 inches, thin black male, in no apparent distress at this time. HEENT: Reveals normocephalic and nontraumatic cranium. Pupils are equally round and reactive. Extraocular movements are intact. Nose and throat are slightly dry. NECK: Supple without masses, nodes, or bruits. CHEST: Clear to auscultation. No rales, rhonchi, wheezes, or cough is heard. HEART: Reveals a regular rate and rhythm without murmurs, gallops, or rubs. ABDOMEN: Soft and nontender without organomegaly. Normal bowel sounds are noted in all 4 quadrants. No rebound or guarding is noted. : Reveals Hernandez catheter in place. EXTREMITIES: Reveal no clubbing, cyanosis, or edema. NEUROVASCULAR: The patient is oriented x3. He is noted to be legally blind. IMPRESSION: 1. Acute exacerbation of chronic obstructive pulmonary disease, much improved. 2. Urinary retention with Hernandez catheter in place. 3. History of prior urinary tract infection. 4. Coronary artery disease without angina. 5. Hypertension. 6. Hyperlipidemia. 7. Extreme weakness with severe deconditioning. 8. Legally blind. PLAN: 1. Continue present pulmonary therapies including handheld nebulizers. 2. Continue Cipro for full 14 days. 3. Continue to monitor the patient's blood pressure and adjust medications as needed. 4. Trial removal of Hernandez next week. 5. Continue PT and OT. 6. Discharge planning sometimes next week. Job ID: [id number]
[2018-07-16] MEDS: Finasteride 5 MG TAB PO SCH (09:34)
[2018-07-16] MEDS: Tamsulosin HCl 0.4 MG CAP PO SCH ×3 (09:34→09:36)
[2018-07-16] MEDS: Carvedilol 25 MG TAB PO SCH ×2 (09:35→17:50)
[2018-07-16] MEDS: Clopidogrel Bisulfate 75 MG TAB PO SCH (09:35)
[2018-07-16] MEDS: Famotidine 20 MG TAB PO SCH ×2 (09:35→20:45)
[2018-07-16] MEDS: Polyethylene Glycol 3350 17 GM Packet PO SCH (09:36)
[2018-07-16] MEDS: Lisinopril 10 MG TAB PO SCH ×2 (09:36→20:45)
[2018-07-17] MEDS: Ipratropium Bromide 2.5 ml Neb NEB SCH ×2 (05:21→12:00)
[2018-07-17] MEDS: Mometasone/Formoterol 60 PUFF AER INH SCH ×2 (05:21→18:32)
[2018-07-17] MEDS: Ciprofloxacin 500 MG TAB PO SCH ×2 (05:21→20:44)
[2018-07-17] MEDS: Clopidogrel Bisulfate 75 MG TAB PO SCH (08:34)
[2018-07-17] MEDS: Lisinopril 10 MG TAB PO SCH ×2 (08:35→20:43)
[2018-07-17] MEDS: Finasteride 5 MG TAB PO SCH (08:35)
[2018-07-17] MEDS: Famotidine 20 MG TAB PO SCH ×2 (08:35→20:43)
[2018-07-17] MEDS: Carvedilol 25 MG TAB PO SCH ×2 (08:35→17:13)
[2018-07-17] MEDS: Polyethylene Glycol 3350 17 GM Packet PO SCH (08:36)
[2018-07-17] MEDS: Tamsulosin HCl 0.4 MG CAP PO SCH (08:38)
--- NOTE | 2018-07-17 13:23 | PRG ---
DATE OF SERVICE: 07/17/2018 SUBJECTIVE: Mr. Torres is doing well, denies any complaints, resting comfortably. Unfortunately, he was unable to void on his own and failed his trial of removing his Hrenandez again and had to have it replaced. Case Management is working on placement. He apparently is also not using his breathing treatments on a regular basis, so we will change it to p.r.n. No family at bedside. Discussed with nursing. OBJECTIVE: VITAL SIGNS: He is afebrile. Heart rate is 64, respirations 18, oxygen saturation 97% on room air, blood pressure 161/88. CARDIOVASCULAR SYSTEM: S1, S2 plus. RESPIRATORY SYSTEM: Normal vesicular breath sounds. ABDOMEN: Soft, nontender. Bowel sounds heard in all quadrants. EXTREMITIES: Without cyanosis or clubbing. Peripheral pulses are palpable. CENTRAL NERVOUS SYSTEM: Awake and responsive. Significant visual impairment, improving generalized weakness. IMPRESSION: 1. Chronic obstructive pulmonary disease. 2. Coronary artery disease without angina. 3. Hypertension. 4. Dyslipidemia. 5. Urinary retention, likely secondary to benign prostatic hyperplasia, requiring chronic Hernandez. 6. Improving deconditioning. 7. Visually impaired. PLAN: 1. Finish ciprofloxacin once 14 days is done. 2. Recheck CBC and BMP in the morning. 3. Await placement for change breathing treatments to p.r.n. 4. Continue heart healthy diet. 5. DVT and stress ulcer prophylaxis. 6. Decubitus precautions. 7. Routine laboratory values. 8. Discussed with the patient and nursing in detail and all questions answered. Job ID: [id number]
[2018-07-18] MEDS: Mometasone/Formoterol 60 PUFF AER INH SCH ×2 (05:34→18:36)
[2018-07-18] MEDS: Ciprofloxacin 500 MG TAB PO SCH ×2 (05:35→21:05)
[2018-07-18 05:48] LABS: #Basophils 0.1 thou/uL (0.0-0.2); #Eosinphils 0.2 thou/uL (0.0-0.7); #Lymphocytes 1.6 thou/uL (1.20-3.40); #Monocytes 0.9 thou/uL (0.11-0.59); %Basophils 0.7 % (0.0-1.0); %Eosinophils 2.5 % (0.0-10.0); %Lymphocytes 20.6 % (21.0-51.0); %Monocytes 11.4 % (0.0-10.0); %Neutrophils 64.8 % (42.0-75.0); Hemoglobin 9.4 g/dL (14.0-18.0); Mean Corpuscular Hemoglobin 32.7 pg (27.0-31.0); Mean Platelet Volume 7.1 fL (7.4-10.4); Platelet Count 268 thou/uL (130-400); RBC Distribution Width 13.6 % (11.5-14.5); Red Blood Cell (RBC) Count 2.88 mill/uL (4.70-6.10); White Blood Cell (WBC) Count 7.8 thou/uL (4.8-10.8)
[2018-07-18 05:51] LABS: Anion Gap 11 mmol/L (10-20); BUN (Urea Nitrogen) 23 mg/dL (8.4-25.7); Calc. Creatinine Clearance 70 mL/min (70-130); Calcium 9.3 mg/dL (7.8-10.44); Carbon Dioxide 29 mmol/L (23-31); Chloride 107 mmol/L (98-107); Estimated GFR-MDRD Greater than 90; Glucose 82 mg/dL (83-110); Potassium 4.5 mmol/L (3.5-5.1); Sodium 142 mmol/L (136-145)
[2018-07-18] MEDS: Lisinopril 10 MG TAB PO SCH ×2 (08:43→21:05)
[2018-07-18] MEDS: Famotidine 20 MG TAB PO SCH ×2 (08:43→21:06)
[2018-07-18] MEDS: Carvedilol 25 MG TAB PO SCH ×2 (08:43→17:16)
[2018-07-18] MEDS: Polyethylene Glycol 3350 17 GM Packet PO SCH (08:43)
[2018-07-18] MEDS: Finasteride 5 MG TAB PO SCH (08:43)
[2018-07-18] MEDS: Clopidogrel Bisulfate 75 MG TAB PO SCH (08:43)
[2018-07-18] MEDS: Tamsulosin HCl 0.4 MG CAP PO SCH (08:44)
--- NOTE | 2018-07-18 13:58 | PRG ---
DATE OF SERVICE: 07/18/2018 SUBJECTIVE: Mr. Torres is doing the same. Denies any complaints. Resting comfortably. Apparently, he has improved significantly with therapy, and they are planning on discharge him end of this week. Case Management has been consulted to assist with placement. Hopefully, he can go to one of the local nursing homes since he is significantly visually impaired and cannot take care of his Hernandez catheter by himself. He should follow up with Urology on an outpatient basis as he failed twice a trial of removing the catheter. He is already on tamsulosin and finasteride. OBJECTIVE: VITAL SIGNS: He is afebrile. Heart rate 67, respirations 20, oxygen saturation 97% on room air, and blood pressure 157/82. CARDIOVASCULAR SYSTEM: S1 and S2 plus. RESPIRATORY SYSTEM: Normal vesicular breath sounds. ABDOMEN: Soft, nontender. Bowel sounds heard in all quadrants. EXTREMITIES: Without cyanosis or clubbing. CENTRAL NERVOUS SYSTEM: He is awake and responsive. Cranial nerves 2 through 12 grossly intact. Motor system examination is grossly nonfocal. : Hernandez catheter is in place and is healthy. LABORATORY DATA: His sodium is 142, potassium 4.5, BUN and creatinine are 23 and 0.78. His white count is 7.8 and H and H are 9.4 and 29.4. IMPRESSION: 1. Chronic obstructive pulmonary disease. 2. Coronary artery disease without angina. 3. Hypertension. 4. Dyslipidemia. 5. Urinary retention, likely due to benign prostatic hypertrophy. 6. Improving deconditioning. 7. Legally blind. PLAN: 1. Continue current medications. 2. Heart healthy diet. 3. Monitor respiratory status. 4. Monitor blood pressure and adjust medications as needed. 5. Monitor for any decompensation of heart disease. 6. Hernandez catheter care. 7. Placement and discharge planning. Discussed with the patient and nursing in detail, and all questions answered. Job ID: [id number]
[2018-07-19] MEDS: Mometasone/Formoterol 60 PUFF AER INH SCH ×2 (05:30→17:46)
[2018-07-19] MEDS: Ciprofloxacin 500 MG TAB PO SCH ×2 (05:31→20:27)
[2018-07-19] MEDS: Carvedilol 25 MG TAB PO SCH ×2 (08:44→17:46)
[2018-07-19] MEDS: Famotidine 20 MG TAB PO SCH ×2 (08:44→20:27)
[2018-07-19] MEDS: Clopidogrel Bisulfate 75 MG TAB PO SCH (08:44)
[2018-07-19] MEDS: Lisinopril 10 MG TAB PO SCH ×2 (08:44→20:27)
[2018-07-19] MEDS: Finasteride 5 MG TAB PO SCH (08:44)
[2018-07-19] MEDS: Tamsulosin HCl 0.4 MG CAP PO SCH (08:44)
[2018-07-19] MEDS: Polyethylene Glycol 3350 17 GM Packet PO SCH (08:45)
[2018-07-19] MEDS: Ventolin HFA Inhaler 60 PUFF INHALER INH PRN (20:26)
[2018-07-20] MEDS: Ciprofloxacin 500 MG TAB PO SCH ×2 (05:23→20:22)
[2018-07-20] MEDS: Mometasone/Formoterol 60 PUFF AER INH SCH ×2 (05:23→17:04)
[2018-07-20] MEDS: Tamsulosin HCl 0.4 MG CAP PO SCH (08:57)
[2018-07-20] MEDS: Clopidogrel Bisulfate 75 MG TAB PO SCH (08:57)
[2018-07-20] MEDS: Finasteride 5 MG TAB PO SCH (08:57)
[2018-07-20] MEDS: Lisinopril 10 MG TAB PO SCH ×2 (08:57→20:23)
[2018-07-20] MEDS: Carvedilol 25 MG TAB PO SCH ×2 (08:57→17:04)
[2018-07-20] MEDS: Polyethylene Glycol 3350 17 GM Packet PO SCH (08:57)
[2018-07-20] MEDS: Famotidine 20 MG TAB PO SCH ×2 (08:58→20:22)
--- NOTE | 2018-07-20 13:56 | PRG ---
DATE OF SERVICE: 07/20/2018 SUBJECTIVE: Mr. Torres is doing well. Denies any complaints. Resting comfortably. Discussed with nursing and apparently [facility] is working on accepting patient. Plan is to discharge him tomorrow as therapy apparently told nursing that he is ready for discharge tomorrow. He is being discharged to nursing facility as he cannot manage the Hernandez catheter at home due to his significant visual impairment. He is to follow up with Urology as outpatient since he failed bladder training twice. OBJECTIVE: VITAL SIGNS: He is afebrile. Heart rate 72, respirations are 18, oxygen saturation 97% on room air, and blood pressure 136/81. CARDIOVASCULAR SYSTEM: S1 and S2 plus. RESPIRATORY SYSTEM: Normal vesicular breath sounds. ABDOMEN: Soft and nontender. Bowel sounds heard in all quadrants. Hernandez catheter in place. EXTREMITIES: Without cyanosis or clubbing. CENTRAL NERVOUS SYSTEM: Awake and responsive, visually impaired, generalized weakness, but slowly improving. IMPRESSION: 1. Chronic obstructive pulmonary disease. 2. Resolved urinary tract infection. 3. Coronary artery disease. 4. Hypertension. 5. Dyslipidemia. 6. Visual impairment. 7. Improving deconditioning. 8. Urinary retention requiring Hernandez catheter placement. PLAN: 1. Continue current medications. 2. Heart healthy diet. 3. DVT and stress ulcer prophylaxis. 4. Decubitus precautions. 5. Routine laboratory values. 6. Discharge planning. 7. Monitor cardiovascular status. 8. Physical therapy. 9. Discussed with the patient and nursing in detail. All questions were answered. Job ID: [id number]
[2018-07-20] MEDS: Ventolin HFA Inhaler 60 PUFF INHALER INH PRN (17:06)
[2018-07-21] MEDS: Ciprofloxacin 500 MG TAB PO SCH (05:06)
[2018-07-21] MEDS: Mometasone/Formoterol 60 PUFF AER INH SCH (05:06)
[2018-07-21] MEDS: Carvedilol 25 MG TAB PO SCH (08:50)
[2018-07-21] MEDS: Lisinopril 10 MG TAB PO SCH (08:55)
[2018-07-21] MEDS: Famotidine 20 MG TAB PO SCH (08:55)
[2018-07-21] MEDS: Tamsulosin HCl 0.4 MG CAP PO SCH (08:55)
[2018-07-21] MEDS: Finasteride 5 MG TAB PO SCH (08:55)
[2018-07-21] MEDS: Clopidogrel Bisulfate 75 MG TAB PO SCH (08:55)
[2018-07-21] MEDS: Polyethylene Glycol 3350 17 GM Packet PO SCH (08:55)
[2018-07-21 14:36] VITALS: BP 112/75; TEMP 98.2
--- NOTE | 2018-07-22 18:17 | DIS ---
DATE OF ADMISSION: 06/26/2018 DATE OF DISCHARGE: 07/21/2018 CHIEF COMPLAINT: Chronic obstructive pulmonary disease. SECONDARY DIAGNOSES: 1. Urinary retention, likely due to BPH, failed bladder training x2. 2. Hypertension. 3. Coronary artery disease. 4. Dyslipidemia. 5. Osteoarthritis. 6. Visual impairment. COMPLICATIONS: None. ADVERSE REACTIONS: None. PROCEDURES AND CONSULTATIONS: None. HOSPITAL COURSE: The patient was admitted from [facility] after being admitted there for respiratory distress. He was diagnosed with COPD exacerbation. He was sent here with tapering dose of steroids and antibiotics for 5 more days. He has done well from the respiratory standpoint. He also has improved from the deconditioning standpoint. Unfortunately, he failed removing his Hernandez catheter twice and unfortunately had to be replaced. He stayed on his Flomax and Proscar. Because of his significant visual impairment and him living home alone with no help and him unable to even kind of feel where the bag of his Hernandez catheter is, it was felt best that he go to a residential facility until he can follow up with Urology and get the situation addressed. The patient was agreeable. He was transferred to [facility]. He is to have outpatient followup with Urology. He will be followed by the diagnostic medical sonographer at [facility]. PHYSICAL EXAMINATION: VITAL SIGNS: On the day of discharge, he was afebrile, heart rate 75, respirations 18, oxygen saturation 98% on room air, and blood pressure 112/75. CARDIOVASCULAR: S1 and S2 plus. RESPIRATORY: Normal vesicular breath sounds. ABDOMEN: Soft and nontender. Bowel sounds heard in all quadrants. EXTREMITIES: Without cyanosis or clubbing. Hernandez catheter in place. CENTRAL NERVOUS SYSTEM: Awake and responsive. Significant visual impairment. Cranial nerves 2 through 12 intact. Much improved generalized weakness. DISCHARGE MEDICATIONS: 1. Tylenol 500 q.6 p.r.n. 2. Symbicort 160/4.5 one puff b.i.d., gargle after use. 3. Carvedilol 25 mg p.o. b.i.d. 4. Plavix 75 mg daily. 5. Pepcid 20 mg b.i.d. 6. Finasteride 5 mg daily. 7. DuoNeb q.6 p.r.n. 8. Lisinopril 10 mg b.i.d. 9. MiraLAX 17 g in 8 ounces of water daily. 10. Tamsulosin 0.4 mg daily. He is to follow a heart healthy diet. Activity as tolerated. Hernandez catheter care. Outpatient followup with urologist. [facility] to schedule appointment. Activity as tolerated and he is to call us with any questions or concerns. Total time spent on this discharge is 25 minutes. Job ID: [id number]
== END 2018-07-21 14:40 | DRG 191 ==
LOC: NAV ACUTE 17:01
PROVIDERS: ADMIT Internal Medicine; ATTEND Internal Medicine
DX: J44.1 Chronic obstructive pulmonary disease with (acute) exacerbation (principal); Z68.1 Body mass index [BMI] 19.9 or less, adult; N39.0 Urinary tract infection, site not specified; B96.5 Pseudomonas (aeruginosa) (mallei) (pseudomallei) as the cause of diseases classified elsewhere; I10 Essential (primary) hypertension; E78.5 Hyperlipidemia, unspecified; I25.10 Atherosclerotic heart disease of native coronary artery without angina pectoris; R63.4 Abnormal weight loss; R53.81 Other malaise; K59.00 Constipation, unspecified; N40.1 Benign prostatic hyperplasia with lower urinary tract symptoms; R33.8 Other retention of urine; I95.1 Orthostatic hypotension; J10.1 Influenza due to other identified influenza virus with other respiratory manifestations; H54.8 Legal blindness, as defined in USA; R53.1 Weakness; F17.210 Nicotine dependence, cigarettes, uncomplicated; F10.10 Alcohol abuse, uncomplicated; Z96.649 Presence of unspecified artificial hip joint; Z98.61 Coronary angioplasty status; Z79.02 Long term (current) use of antithrombotics/antiplatelets
CPT/HCPCS: 36415; 71045; 80048; 80053; 81001; 85025; 87040; 87077; 87086; 87186; 87804; J7042; J7611; J7620

== ENCOUNTER 2018-08-08 11:59 | Emergency (ER) | payer MEDICARE, MEDICAID ==
[2018-08-08 12:37] LABS: #Lymphocytes 1.5 thou/uL (1.20-3.40); #Monocytes 0.9 thou/uL (0.11-0.59); #Neutrophils 4.3 thou/uL (1.40-6.50); %Basophils 0.3 % (0.0-1.0); %Eosinophils 0.1 % (0.0-10.0); %Lymphocytes 21.7 % (21.0-51.0); %Neutrophils 63.9 % (42.0-75.0); Hemoglobin 10.6 g/dL (14.0-18.0); Mean Corpuscular HGB CONC 31.3 g/dL (32.0-36.0); Mean Corpuscular Hemoglobin 30.9 pg (27.0-31.0); Mean Corpuscular Volume 98.7 fL (78.0-98.0); Platelet Count 181 thou/uL (130-400); RBC Distribution Width 12.9 % (11.5-14.5); Red Blood Cell (RBC) Count 3.42 mill/uL (4.70-6.10); White Blood Cell (WBC) Count 6.7 thou/uL (4.8-10.8)
[2018-08-08] MEDS ORDERED: methylPREDNISolone Sod Succ/PF 125 MG/2 ML VIAL ONE (12:37)
[2018-08-08 12:55] LABS: ALT (SGPT) 9 U/L (8-55); AST (SGOT) 18 U/L (5-34); Albumin 3.7 g/dL (3.4-4.8); Alkaline Phosphatase 84 U/L (40-150); Anion Gap 15 mmol/L (10-20); BUN (Urea Nitrogen) 17 mg/dL (8.4-25.7); Bilirubin, Total 0.2 mg/dL (0.2-1.2); Calc. Creatinine Clearance 0 mL/min (70-130); Calcium 9.6 mg/dL (7.8-10.44); Carbon Dioxide 30 mmol/L (23-31); Chloride 97 mmol/L (98-107); Estimated GFR-MDRD Greater than 90; Globulin 3.4 g/dL (2.4-3.5); Glucose 121 mg/dL (83-110); Potassium 4.7 mmol/L (3.5-5.1); Protein, Total 7.1 g/dL (5.8-8.1); Sodium 137 mmol/L (136-145)
--- NOTE | 2018-08-08 12:58 | RAD ---
PA AND LATERAL CHEST: History: Cough. FINDINGS: Comparison made with exam of 02-14-17. The heart size is normal. The aorta is tortuous. Changes of COPD are again seen. Nodular density in t he left midlung is stable. No focal areas of consolidation, pneumothoraces or pleural effusions are s een. IMPRESSION: No acute process. POS: [facility]
[2018-08-08] MEDS ORDERED: Albuterol Sulfate 2.5 mg/3 ml Neb ONE (13:08)
== END 2018-08-08 15:44 ==
LOC: NAV ERS 11:59
DX: J44.1 Chronic obstructive pulmonary disease with (acute) exacerbation (principal); F17.210 Nicotine dependence, cigarettes, uncomplicated; I10 Essential (primary) hypertension; Z79.891 Long term (current) use of opiate analgesic; Z79.899 Other long term (current) drug therapy; Z79.51 Long term (current) use of inhaled steroids
CPT/HCPCS: 71046; 80053; 85025; 93005; 94640; 94760; 96374; J2930; J7611; J7620

== ENCOUNTER 2019-11-02 13:25 | Emergency (ER) | payer MEDICARE, OTHER ==
[~2019-11-02 13:25] MED LIST: Iopamidol 370 76% 100 ML VIAL ONE
--- NOTE | 2019-11-02 14:33 | RAD ---
EXAM: CHEST ONE VIEW: 11/02/19 HISTORY: Cough. COMPARISON: 05/29/19. FINDINGS: Again noted are bilateral hyperinflation and bullous emphysema changes with increased linear and inte rstitial markings particularly in the mid and lower lung zones. The left costophrenic angle is not co mpletely included on this study. The previously noted large left pleural effusion has resolved. No si gnificant cardiomegaly. IMPRESSION: Hypertension and bullous emphysema changes particularly in the upper lung zones with liner and inters titial increased markings bilaterally having a chronic appearance with resolution of the previously n oted left pleural effusion. Atherosclerosis of the aorta with some ectasia. Left costophrenic angle i s not completely included on this exam. No confluent lobar pneumonia. POS: [facility]
[2019-11-02 14:38] LABS: #Lymphocytes 1.1 thou/uL (1.20-3.40); #Monocytes 0.8 thou/uL (0.11-0.59); #Neutrophils 9.6 thou/uL (1.40-6.50); %Basophils 0.4 % (0.0-1.0); %Eosinophils 0.4 % (0.0-10.0); %Lymphocytes 9.7 % (21.0-51.0); %Monocytes 6.9 % (0.0-10.0); %Neutrophils 82.8 % (42.0-75.0); Hemoglobin 10.5 g/dL (14.0-18.0); Mean Corpuscular HGB CONC 28.8 g/dL (32.0-36.0); Mean Corpuscular Hemoglobin 28.6 pg (27.0-31.0); Mean Corpuscular Volume 99.3 fL (78.0-98.0); Mean Platelet Volume 8.9 fL (7.4-10.4); Platelet Count 191 thou/uL (130-400); RBC Distribution Width 16.4 % (11.5-14.5); Red Blood Cell (RBC) Count 3.68 mill/uL (4.70-6.10); White Blood Cell (WBC) Count 11.6 thou/uL (4.8-10.8)
[2019-11-02] MEDS ORDERED: methylPREDNISolone Sod Succ/PF 125 MG/2 ML VIAL ONE (14:46)
[2019-11-02] MEDS ORDERED: Ventolin HFA Inhaler 60 PUFF INHALER ONE (14:46)
[2019-11-02 14:49] LABS: ALT (SGPT) 291 U/L (8-55); AST (SGOT) 169 U/L (5-34); Albumin 2.9 g/dL (3.4-4.8); Alkaline Phosphatase 725 U/L (40-110); Anion Gap 12 mmol/L (10-20); BUN (Urea Nitrogen) 26 mg/dL (8.4-25.7); Bilirubin, Total 10.9 mg/dL (0.2-1.2); Calc. Creatinine Clearance 0 mL/min (70-130); Carbon Dioxide 36 mmol/L (23-31); Chloride 94 mmol/L (98-107); Estimated GFR-MDRD Greater than 90; Globulin 3.2 g/dL (2.4-3.5); Glucose 143 mg/dL (83-110); Protein, Total 6.1 g/dL (5.8-8.1); Sodium 137 mmol/L (136-145)
[2019-11-02 14:58] LABS: Base Excess-Venous 8.1 mmol/L (-2.0 to 3.0); Bicarbonate (HCO3v) 36.7 mmol/L (22.0-28.0); CO2 Tension (PvCO2) 70.6 mmHg (40.0-50.0); Calcium, Ionized 1.12 mmol/L (See Comments:); Chloride 96 mmol/L (98-107); Hemoglobin - Calc 13.1 g/dL (14.0-18.0); Potassium 4.8 mmol/L (3.5-5.1); Sodium 140 mmol/L (138-145); T. Carbon Dioxide 38.9 mmol/L (22.0-28.0); vO2 Saturation-calc 93.6 % (60.0-85.0)
[2019-11-02 15:07] LABS: Anisocytosis SLIGHT = 6-15 cells (100X) (0-5/hpf); Hypochromia SLIGHT = 6-15 cells (100X) (0-5/hpf); MDiff Complete? YES; Platelet Morphology Comment Appears Adequate
--- NOTE | 2019-11-02 18:17 | CT ---
CT PULMONARY ANGIOGRAM WITH IV CONTRAST AND 3D POSTPROCESSIN11/02/19 HISTORY: Dyspnea. COMPARISON: 11/10/18. FINDINGS: There is good contrast opacification of the pulmonary arterial vasculature without filling defects to suggest pulmonary embolism. There are vascular calcifications without aneurysm or dissection of the thoracic aorta. No pleural or pericardial effusions are seen. There is an 8 mm right hilar lymph node and an 8 mm left prevascular lymph node. Extensive emphysematous changes are again seen. There is a focal area of patchy consolidation in the left upper lobe/lingula. Upper abdominal tomograms demonstrate a 12.4 cm heterogeneous right liver lo be mass and intrahepatic biliary ductal dilatation. This mass is larger than on the comparison study. There are degenerative changes in the spine. IMPRESSION: 1. No CT evidence of pulmonary embolism. 2. Patchy consolidation in the left lung. 3. Right liver lobe mass and intrahepatic biliary ductal dilatation, highly suspicious for malig adriana. POS: [facility]
== END 2019-11-02 16:49 | disposition short-term general hospital (02) ==
LOC: NAV ERS 13:25
DX: J44.1 Chronic obstructive pulmonary disease with (acute) exacerbation (principal); R06.89 Other abnormalities of breathing; R94.5 Abnormal results of liver function studies; C22.8 Malignant neoplasm of liver, primary, unspecified as to type; K21.9 Gastro-esophageal reflux disease without esophagitis; D50.9 Iron deficiency anemia, unspecified; I11.0 Hypertensive heart disease with heart failure; I50.9 Heart failure, unspecified; F17.210 Nicotine dependence, cigarettes, uncomplicated
CPT/HCPCS: 71045; 71275; 80053; 82330; 82803; 83605; 83880; 84484; 85025; 85379; 87040; 93005; 96374; J2930; J7620; Q9967